=== PATIENT | female | born 1945 | race Caucasian/White ===

== ENCOUNTER → 2017-04-04 | Outpatient (CLI) | payer MEDICARE ==
[~2017-04-04] MED LIST: BIMA0.01 OP; BUSP15TA70 PO; CAFF200T13 PO; CHOL1CAP95 PO; CHOL4POW11; CITA10TA8 PO; CYCL0.05 OP; GABA1CAP PO; GLIM2TAB PO; HYZ/10015 PO; INDO-22 PO; LORA10TA51 PO; LOSA100T2 PO; POTA-327 PO; TAMO20TA47 PO; TRAM-10 PO; TYLOTC500 PO; [UNRECOGNIZED DRUG - CODE] PO; [UNRECOGNIZED DRUG - OTHER] OPB
[2017-04-04 13:44] VITALS: BP 153/83; PULSE 96; TEMP 36.8; O2SAT 95
--- NOTE | 2017-04-04 14:39 | Radiation Oncology Follow-Up ---
Radiation Oncology Follow-Up Date of Visit Apr 04, 2017. Reason For Visit Annual follow-up Radiation Completion Date 08/26/15 Diagnosis (1) Breast cancer Status: Resolved Onset Date: 05/05/2015 Histology Subtype: ductal Stage: l Permanent Comment: DIAGNOSIS: Right breast, invasive ductal carcinoma, grade 2 , ER/UT positive, Her2 negative, multifocal (pT1cN0, pT1aN0, pT1aN0), stage IA TREATMENT: 1. Lumpectomy with SLN - 05/20/15 - Dr. Chavarria 2. Status post completion of radiation therapy 08/26/2015 received 6640 cGy Last Edited By: Maria A You on Sep 02, 2015 12:52 History of Present Illness Ms. 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 She was initially offered to undergo a mastectomy or tamoxifen however she refused both. She had a bilateral screening mammogram in 05/03/2015 which showed a 12 mm asymmetric lesion in the right breast which has been increasing in size and is suspicious for malignancy. On the same day, she did have a diagnostic right mammogram and right breast ultrasound which confirmed a 12 mm mass at the 9 o'clock position in the deep right breast. She underwent an ultrasound-guided biopsy on 05/05/2015 which revealed invasive ductal carcinoma, grade 2, no LVSI, , no DCIS, ER positive, UT positive, Her2 negative. She met with Dr. Chavarria who recommended either a mastectomy or lumpectomy/ sentinel lymph node biopsy followed by adjuvant radiation therapy. The patient underwent a lumpectomy and sentinel lymph node biopsy on 05/20/2015 which revealed 3 foci of invasive ductal carcinoma. The largest tumor measuring 1.2 cm in the greatest dimension. The margins were negative and the DCIS margin was less than 1 mm from the inked superficial margin for only one of the 3 tumors. There is no evidence of lymphovascular space invasion and ductal carcinoma in situ was only noted in one of the 3 tumors. The full pathology results are included below. Dr. Chavarria discussed options in the adjuvant setting including consideration for systemic therapy and anterior hormonal therapy. The patient refused systemic therapy and has not seen a medical oncologist. We are now seeing her in consultation to discuss the role of radiation therapy. She completed conventional radiation therapy 08/26/2015 and received 6640 cGy. Interim History She's been doing well over the past year. She has noted no changes to her breast. She has a area of seroma which is steadily improved over time. She denies any tenderness. She's had no change in the axilla no swelling of her arm. She is up-to-date on mammography. She had a mammogram in [place] 2015. There was no evidence of breast malignancy. Slight decrease in the right breast seroma. Recommend follow-up in 12 months. BI-RADS Category 2. She does have hot flashes as a side effect from the tamoxifen. These are minimal. Allergies Coded Allergies: Sulfa Antibiotics (Verified Allergy, Mild, Hives, 06/16/15) Home Medications Scheduled Buspirone Hcl (Buspar), 2.5 MG PO DAILY Cholecalciferol (Vitamin D3), 1 CAP PO [id number] Citalopram Hydrobromide (Celexa), 1 TAB PO DAILY Cyclosporine Oph 0.05% (Restasis Oph 0.05%), 1 DROP OP BID Gabapentin (Neurontin), 1-2 CAP PO HS Glimepiride (Amaryl), 2 MG PO DAILY Hctz/Losartan (Hyzaar 25MG/100MG), 1 TAB PO DAILY Indomethacin (Indocin), 25 MG PO BID Loratadine (Claritin), 1 TAB PO PRN Potassium Ext Rel (Klor-Con), 1 TAB PO DAILY Tamoxifen (Nolvadex), 20 MG PO DAILY Tramadol (Ultram), 1 TAB PO HS [zioptin], 1 DROP OPB DAILY Scheduled PRN Acetaminophen (Tylenol), 1,000 MG PO BID PRN for p Review of Systems Gastrointestinal: Symptoms: WNL Oral: Symptoms: No Problems Respiratory: Symptoms: WNL Urinary: Symptoms: WNL Skin: Symptoms: No Problems Breast: Right Upper Arm Measurement: 31.3 Right Mid Arm Measurement: 27.0 Right Wrist Measurement: 16.5 Left Upper Arm Measurement: 31.0 Left Mid Arm Measurement: 26.5 Left Wrist Measurement: 16.8 Arm Dominence: Right Physical Exam Vital Signs Date Time Temp Pulse Resp B/P (MAP) Pulse Ox O2 Delivery O2 Flow Rate FiO2 04/04/17 13:44 36.8 96 20 153/83 95 Pain: Patient Pain Scale: 0 - 10 Initial Pain Intensity: 0.0 Additional Comments: States that this pain level is "tolerable" to her; General Appearance: no apparent distress Eyes: normal inspection, EOMI ENT: normal ENT inspection, hearing grossly normal Neck: no adenopathy, thyroid normal Respiratory/Chest: lungs clear, no respiratory distress, no accessory muscle use Breast: Breast examination reveals well-healed incisions of the right breast. Minimal fullness in the upper outer quadrant. There is mild residual hyperpigmentation. There is no areas of tenderness. There are no distinct masses. There is no axillary adenopathy. She has no skin retractions or nipple changes. Using the Cuddy score cosmesis she has a good outcome. The left breast showed no masses or tenderness no axillary adenopathy. Cardiovascular: regular rate, rhythm, no gallop, no murmur Abdomen: non tender Extremities: no pedal edema Neurologic/Psychiatric: no motor/sensory deficits, alert, normal mood/affect Skin: warm/dry Additional Studies Mammography as reviewed above. Assessment & Plan Plan: She was also seen and examined by Dr. Urbina. Continue annual mammography. We discussed the seroma. This has steadily decreased over time. We also discussed the hyperpigmentation which is also steadily improving. She has a mammogram scheduled for 05/26/2017. She is now going to follow with medical oncology and will be seeing Dr. Cunha on 04/16/2017. She continues on the tamoxifen. We asked her to return to our office in 1 year. She may call she has any questions or concerns in the interim. Assessment & Plan (Attending) ADDENDUM: I agree with note created by Maria A You PA-C. I reviewed the patient's chart and information with her. I have examined and evaluated the patient. I reviewed relevant clinical information and answered the patient's and /or family's questions. BATH ATTENDANT Total Time In Follow-Up I spent 20 minutes speaking to the patient and performing examination. I spent 15 minutes reviewing information completing this note. AK Total Time (Attending) In Follow-Up I spent 15 minutes examining and counseling the patient. BATH ATTENDANT Copy To Aaron Barkley M.D.; Freddy Cunha MD Problem Qualifiers (1) Breast cancer: Breast location: central portion of breast Estrogen receptor status: positive Patient sex: female Laterality: right Qualified Codes: C50.111 - Malignant neoplasm of central portion of right female breast; Z17.0 - Estrogen receptor positive status [ER+]
== END | disposition home or self-care (01) ==
LOC: C.ONC 13:23
PROVIDERS: ATTEND Physician Assistant Medical
DX: Z08 Encounter for follow-up examination after completed treatment for malignant neoplasm (principal); Z92.3 Personal history of irradiation; Z85.3 Personal history of malignant neoplasm of breast